=== PATIENT | male | born 2000 | race Caucasian/White ===

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

== ENCOUNTER 2022-11-15 11:34 | Outpatient (CLI) | payer BC ==
[2022-11-15 13:13] LABS: Bilirubin Neg (Negative); Blood, Urine Negative (Negative); Clarity Clear (Clear); Glucose, Urine (Dipstick) Normal (Negative); Ketone, Urine Negative (Negative); Leukocyte Negative (Negative); Nitrite Negative (Negative); Protein, Urine (Dipstick) Negative (Neg-Trace); Urobilinogen Normal mg/dL (Less than 2)
[2022-11-15 13:22] LABS: RBC/HPF None Seen HPF (0-3); Squamous Epithelial 0-3 HPF (0-3); WBC/HPF None Seen HPF (0-3)
[2022-11-15 13:23] LABS: Bacteria/HPF None Seen HPF (None Seen)
[2022-11-15 13:31] LABS: Hemoglobin 15.4 g/dL (13.5-17.5); Mean Corpuscular HGB CONC 34.7 g/dL (32.0-36.0); Mean Corpuscular Hemoglobin 29.3 pg (27.0-33.0); Mean Corpuscular Volume 84.6 fl (81.2-95.1); Mean Platelet Volume 9.1 fl (7.4-10.4); Platelet Count 298 10x3/uL (150-450); RBC Distribution Width 12.5 % (11.5-14.5); Red Blood Cell (RBC) Count 5.25 10x6/uL (4.32-5.72)
[2022-11-15 13:45] LABS: PTT 29.4 sec (22.0-33.0); Prothrombin Time 10.5 sec (9.5-12.1)
[2022-11-15 13:54] LABS: Anion Gap 18 mmol/L (10-20); BUN (Urea Nitrogen) 16 mg/dL (8.9-20.6); Calc. Creatinine Clearance 0 mL/min (70-130); Calcium 10.4 mg/dL (7.8-10.44); Carbon Dioxide 23 mmol/L (22-29); Chloride 104 mmol/L (98-107); Estimated GFR 92; Glucose 88 mg/dL (70-105); Sodium 140 mmol/L (136-145)
== END 2022-11-15 11:35 | disposition home or self-care (01) ==
LOC: LABBT 11:34
PROVIDERS: ATTEND Urology
DX: Z01.812 Encounter for preprocedural laboratory examination (principal); N43.3 Hydrocele, unspecified
CPT/HCPCS: 80048; 81001; 85027; 85610; 85730; 87086

== ENCOUNTER 2022-11-22 09:24 | Day surgery (SDC) | payer BC ==
[2022-11-15 12:25] VITALS: BMI 29.7
[2022-11-22] MEDS ORDERED: Vancomycin 1 GM VIAL ONE (11:11)
[2022-11-22] MEDS ORDERED: Gentamicin 80 MG/2 ML VIAL ONE (11:11)
[2022-11-22] MEDS ORDERED: Bacitracin Zinc Ointment 30 gm TUBE ONE (11:11)
[2022-11-22] MEDS ORDERED: Midazolam HCl 2 mg/2 ml Vial ONE (11:13)
[2022-11-22] MEDS ORDERED: Sodium Chloride 0.9% 100 ML ONE (11:13)
[2022-11-22] MEDS ORDERED: CEFAZOLIN 2 GM VIAL ONE (11:13)
[2022-11-22] MEDS ORDERED: Meperidine HCl/PF 25 MG/ML VIAL ONE (11:28)
[2022-11-22] MEDS ORDERED: fentaNYL 50 mcg/mL 1 mL Vial ONE (11:28)
[2022-11-22] MEDS ORDERED: Famotidine/PF 20 mg/2ml Vial ONE (11:28)
[2022-11-22] MEDS ORDERED: Lidocaine 1% PF 5 ML VIAL ONE (11:39)
[2022-11-22] MEDS ORDERED: Dexamethasone 20 MG/5 ML VIAL ONE (11:39)
[2022-11-22] MEDS ORDERED: Ondansetron PF 4 MG/2 ML Vial ONE (11:39)
[2022-11-22] MEDS ORDERED: Ketorolac Tromethamine 30 MG/ML VIAL ONE (11:39)
[2022-11-22] MEDS ORDERED: PROPOFOL 200 MG/20 ML VIAL ONE (11:39)
[2022-11-22] MEDS ORDERED: Metoclopramide HCl 10 MG/2 ML VIAL ONE (11:39)
[2022-11-22] MEDS ORDERED: Bupivacaine 0.25% HCL 30 ML VIAL ONE (12:22)
== END 2022-11-22 14:40 | disposition home or self-care (01) ==
LOC: SDC 09:24
PROVIDERS: ATTEND Urology
PROC: 0VB60ZZ Excision of Right Tunica Vaginalis, Open Approach (ICD-10-PCS; principal; 2022-11-22)
DX: N43.3 Hydrocele, unspecified (principal); F17.290 Nicotine dependence, other tobacco product, uncomplicated
CPT/HCPCS: 88302; J1100; J1580; J1885; J2175; J2250; J2405; J2704; J2765; J3010; J3370; J3490; S0020; S0028